=== PATIENT | female | born 1965 | race Two or more races ===

== ENCOUNTER → 2017-09-28 | Outpatient (CLI) | payer OTHER ==
[2017-09-28 16:22] LABS: Hepatitis B Surface Antibody Negative
[2017-09-28 16:32] LABS: Hepatitis B Surface Antigen Negative (Negative)
== END | disposition home or self-care (01) ==
LOC: LAB 15:12
PROVIDERS: ATTEND Nurse Practitioner
DX: Z57.8 Occupational exposure to other risk factors (principal)
CPT/HCPCS: 36415; 86703; 86706; 86803; 87340

== ENCOUNTER → 2018-03-09 | Outpatient (CLI) | payer OTHER ==
[2018-03-11 09:17] LABS: Hepatitis B Surface Antibody Positive
[2018-03-11 10:29] LABS: Hepatitis B Surface Antigen Negative (Negative)
== END | disposition home or self-care (01) ==
LOC: LAB 08:19
PROVIDERS: ATTEND Nurse Practitioner
DX: S61.202A Unspecified open wound of right middle finger without damage to nail, initial encounter (principal); X58.XXXA Exposure to other specified factors, initial encounter; Y93.89 Activity, other specified; Y92.89 Other specified places as the place of occurrence of the external cause; Y99.8 Other external cause status
CPT/HCPCS: 36415; 86703; 86706; 86803; 87340

== ENCOUNTER → 2018-09-28 | Outpatient (CLI) | payer OTHER ==
[2018-09-30 09:43] LABS: Hepatitis B Surface Antibody Positive
[2018-09-30 10:56] LABS: Hepatitis B Surface Antigen Negative (Negative)
== END | disposition home or self-care (01) ==
LOC: LAB 08:01
PROVIDERS: ATTEND Nurse Practitioner
DX: S61.202A Unspecified open wound of right middle finger without damage to nail, initial encounter (principal); X58.XXXA Exposure to other specified factors, initial encounter; Y93.89 Activity, other specified; Y92.89 Other specified places as the place of occurrence of the external cause; Y99.8 Other external cause status
CPT/HCPCS: 36415; 86703; 86706; 86803; 87340